=== PATIENT | female | born 1930 | race Caucasian/White ===

== ENCOUNTER → 2016-09-02 | Outpatient (REF) | LOC: ZLAB.WCH 16:04 | DX: Z01.89 Encounter for other specified special examinations (principal) ==

== ENCOUNTER → 2016-12-02 | Outpatient (REF) | LOC: ZLAB.WCH 18:09 | DX: Z01.89 Encounter for other specified special examinations (principal) ==

== ENCOUNTER → 2017-03-03 | Outpatient (REF) | LOC: ZLAB.WCH 19:12 | DX: Z01.89 Encounter for other specified special examinations (principal) ==

== ENCOUNTER → 2017-06-26 | Outpatient (REF) | LOC: ZLAB.WCH 17:23 | DX: Z01.89 Encounter for other specified special examinations (principal) ==

== ENCOUNTER → 2017-09-29 | Outpatient (REF) ==
[2017-09-29 19:02] LABS: THYROID STIMULATING HORMONE 1.14 uIU/mL (0.465-4.680)
== END ==
LOC: ZLAB.WCH 17:49
PROVIDERS: Family Medicine
DX: Z01.89 Encounter for other specified special examinations (principal)

== ENCOUNTER → 2017-11-28 | Outpatient (REF) | LOC: ZLAB.WCH 14:35 | DX: Z01.89 Encounter for other specified special examinations (principal) ==